=== PATIENT | female | born 1985 | race Caucasian/White ===

== ENCOUNTER 2016-05-01 15:15 | Outpatient (CLI) | payer OTHER | END 2016-05-01 15:16 | disposition home or self-care (01) | DX: R31.9 Hematuria, unspecified (principal) ==

== ENCOUNTER 2016-12-26 11:09 | Outpatient (CLI) | payer OTHER | END 2016-12-26 11:10 | disposition home or self-care (01) | LOC: LAB.WCP 11:09 | PROVIDERS: ATTEND Physician Assistant Medical | DX: N76.0 Acute vaginitis (principal) | CPT/HCPCS: 87480; 87491; 87510; 87591; 87660 ==